=== PATIENT | male | born 1970 | race Caucasian/White ===

== ENCOUNTER 2018-03-03 12:28 | Day surgery (SDC) | payer BC ==
[2018-03-03] MEDS ORDERED: FENTAnyl 50 MCG/ML VIAL (15:52)
[2018-03-03] MEDS ORDERED: MIDAZOLAM 1 MG/ML 2 ML INJ ×2 (15:52)
== END 2018-03-03 17:44 | disposition home or self-care (01) ==
LOC: GIL 12:28
DX: R19.4 Change in bowel habit (principal); K29.50 Unspecified chronic gastritis without bleeding; B96.81 Helicobacter pylori [H. pylori] as the cause of diseases classified elsewhere; K64.8 Other hemorrhoids; I10 Essential (primary) hypertension
CPT/HCPCS: 43239; 88305; 88312